=== PATIENT | female | born 1975 | race Caucasian/White ===

== ENCOUNTER 2018-05-15 11:13 | Outpatient (REF) | payer MEDICAID, SELFPAY ==
[2018-05-15 13:33] LABS: ALT 27 U/L (12-78); AST 17 U/L (15-37); Albumin 3.7 g/dL (3.4-5.0); Alkaline Phosphatase 62 U/L (46-116); Anion Gap 9.8 mmol/L (3-11); BUN 16 mg/dL (7-18); Bilirubin, Total 0.5 mg/dL (0.2-1.0); CO2 26.2 mmol/L (21.0-32.0); Calcium 8.8 mg/dL (8.5-10.1); Chloride 103 mmol/L (98-107); Cholesterol 166 mg/dL (50-200); Glucose 95 mg/dL (70-100); HDL Cholesterol 40 mg/dL (40-60); LDL CHOLESTEROL 100 mg/dL (<100); Potassium 4.2 mmol/L (3.5-5.1); Sodium 139 mmol/L (136-145); Total Protein 7.2 g/dL (6.4-8.2); Triglyceride 118 mg/dL (30-150)
== END 2018-05-15 11:33 ==
LOC: NCHCN 11:13
PROVIDERS: PCP Physician Assistant Medical; Visit Provider Nurse Practitioner
DX: R26.89 Other abnormalities of gait and mobility (principal); R42 Dizziness and giddiness; R73.9 Hyperglycemia, unspecified; E66.9 Obesity, unspecified
CPT/HCPCS: 80053; 80061; 83721

== ENCOUNTER 2018-07-26 10:43 | Outpatient (REF) | payer MEDICAID, SELFPAY ==
--- NOTE | 2018-07-26 10:15 | PAPFT_PTH ---
PATIENT: GLORIA BROWN LOC: [facility]#:[id number] AGE/SX: 43/F ROOM: RE07/26/[address]: Tri Veras : 1975 BED: DIS: 07/26/2018 SPEC #: [id number] RECD: 07/26/18 17:36 STATUS: VINNIELenora REEfren #: [id number] MARV: 07/26/18 10:[address]: Tri Veras DEPT: COUNT INCLUDES THE [facility] Cytology RECD BY: Gisselle Valero ENTERED: 07/26/18 17:36 SP TYPE: PAPFT OTHR DR: Stefanie Saez Tissues: 1 - CX/ENDOCX FOR PAP SMEARS Procedures: PAP THIN PREP/[facility] Screening HPV DNA PROBE Comments: [id number]
== END 2018-07-26 11:03 ==
LOC: NCHCN 10:43
PROVIDERS: PCP Physician Assistant Medical; Visit Provider Nurse Practitioner
DX: R30.0 Dysuria (principal); Z12.4 Encounter for screening for malignant neoplasm of cervix; Z11.51 Encounter for screening for human papillomavirus (HPV)
CPT/HCPCS: 88142; 87086; 87624

== ENCOUNTER 2019-07-19 12:17 | Outpatient (CLI) | payer MEDICAID, SELFPAY ==
[2019-07-19 12:53] LABS: Abs Immature Grans 0.02 k/cumm (0.0-0.09); Absolute Basophil Count 0.02 k/cumm (0.0-0.2); Absolute Eosinophil Count 0.12 k/cumm (0.0-0.7); Absolute Lymphocyte Count 2.55 k/cumm (1.2-3.4); Absolute Monocyte Count 0.44 k/cumm (0.11-0.7); Absolute Neutrophil Count 5.98 k/cumm (1.2-6.7); Basophils % 0.2; Eosinophils % 1.3; HCT 41.3 % (36.0-46.0); HGB 13.5 g/dL (12.0-15.5); Immature Grans % 0.2 %; Lymphocytes % 27.9; Mean Corp. HGB Concentration 32.7 g/dL (32.0-36.0); Mean Corpuscular Hemoglobin 27.8 pg (27.0-33.0); Mean Platelet Volume 10.5 fL (8.0-11.0); Monocytes % 4.8; Neutrophils % 65.6; Platelet Count 254 x1000/uL (130-400); RBC 4.86 m/cumm (4.00-5.20); RBC Distribution Width 13.3 % (11.7-14.6); White Blood Cell Count 9.13 k/cumm (4.4-10.8)
[2019-07-19 13:24] LABS: D-Dimer 324 ng/mlFEU (<500)
[2019-07-19 14:07] LABS: TSH (W/Ref FT4) 3.31 uIU/mL (0.36-3.74)
== END 2019-07-19 12:37 ==
PROVIDERS: PCP Nurse Practitioner; Visit Provider Nurse Practitioner
DX: R06.02 Shortness of breath (principal)
CPT/HCPCS: 36415; 84443; 85025; 85379